=== PATIENT | female | born 1945 | race African-American/Black ===

== ENCOUNTER 2019-01-23 13:25 | Emergency (ER) | payer MEDICARE, OTHER ==
[~2019-01-23] VITALS: Ht 160 cm; Wt 59.0 kg
[2019-01-23 13:42] VITALS: BP 145/70
[2019-01-23] MEDS ORDERED: predniSONE 20 MG TABLET PO ONE (14:00)
[2019-01-23] MEDS ORDERED: METH4TAB2 PO (14:16)
--- NOTE | 2019-01-23 14:16 | PHYS DOC ---
Past Medical History Past Medical History: Arthritis, Hypertension (NORMA LAY APRN) Past Surgical History: No Surgical History (NORMA LAY APRN) Alcohol Use: None Drug Use: None (NORMA LAY APRN) Adult General Chief Complaint Chief Complaint: PAIN CONTROL HPI HPI Patient is a 73 year old female with history of rheumatoid arthritis, hypertension, who presents to the ED today complaining of 10 out of 10 right knee pain for 2 weeks. Patient states she has been taking Aleve with minimal relief. Patient denies any injury. Patient states she follows up with her senior visual designer for pain. She would also like us to evaluate her right index finger which she believes has a spider bite. She never saw the spider bite her but she believes it happened a couple days ago. Patient denies any drainage from the area. Patient describes the pain as sharp and constant. Patient states the pain is worse on flexion and extension of the knee, she is asking for steroid injection in the knee. (NORMA LAY APRN) Review of Systems Review of Systems Constitutional: Denies fever or chills [] Musculoskeletal: Reports right knee pain-chronic Integument: Reports insect bite to the right index finger. Neurologic: Denies headache, focal weakness or sensory changes [] All other systems were reviewed and found to be within normal limits, except as documented in this note. (NORMA LAY APRN) Current Medications Current Medications Current Medications Medications (Trade) Dose Ordered Sig/Chun Start Time Stop Time Status Last Admin Dose Admin Prednisone (Prednisone) 60 mg 1X ONCE 01/23/19 14:00 01/23/19 14:01 DC 01/23/19 14:21 60 MG (ESTEBAN DUNCAN MD) Allergies Allergies Allergies Coded Allergies Type Severity Reaction Last Updated Verified No Known Drug Allergies 01/23/19 No (ESTEBAN DUNCAN MD) Physical Exam Physical Exam Constitutional: Well developed, well nourished, no acute distress, non-toxic appearance. [] Skin: Right index finger with 2 puncture wounds suspicious of insect bite on mid phalanx and distal phalanx. No erythema to these areas. No drainage. No tenderness. Back: No tenderness, no CVA tenderness. [] Extremities: Right knee with no obvious deformity, no edema, no ecchymosis, no warmth, no redness, full passive range of motion to the right knee, +2 right pedal pulse. Cap refill less than 2 seconds the right lower extremity. Neurologic: Alert and oriented X 3, normal motor function, normal sensory function, no focal deficits noted. [] Psychologic: Affect normal, judgement normal, mood normal. [] (NORMA LAY APRN) Current Patient Data Vital Signs Vital Signs Date Time Temp Pulse Resp B/P (MAP) Pulse Ox O2 Delivery O2 Flow Rate FiO2 01/23/19 13:42 97.7 77 16 145/70 (95) 98 Room Air 97.7 (ESTEBAN DUNCAN MD) EKG EKG [] (NORMA LAY APRN) Radiology/Procedures Radiology/Procedures [] (NORMA LAY APRN) Course & Med Decision Making Course & Med Decision Making Pertinent Labs and Imaging studies reviewed. (See chart for details) This is a 73-year-old female patient presenting to the ED today with chronic right knee pain, patient has rheumatoid arthritis. Currently taking Aleve. Given prescription for Medrol Dosepak. Also has insect bite to the right index finger that does not appear infected, recommended Neosporin [id number], patient wants a prescription medicine, Bactroban provided, tetanus up-to-date. Follow-up with PCP as needed. (NORMA LAY APRN) Course & Med Decision Making Staff Physician Addendum: I was working in the ER during the course of this patient's visit. I was available for consultation as needed, but I was not directly involved in the care of this patient. (ESTEBAN DUNCAN MD) Dragon Disclaimer Dragon Disclaimer This electronic medical record was generated, in whole or in part, using a voice recognition dictation system. (NORMA LAY APRN) Departure Departure Impression: Primary Impression: Chronic pain of right knee Additional Impression: Insect bite of index finger Disposition: 01 HOME, SELF-CARE Condition: STABLE Referrals: SELVIN ANDRE MD followup in 1 week Patient Instructions: Insect Bite, [id number], Knee Pain, [id number] Additional Instructions: You were evaluated in the emergency room for chronic right knee pain. Ice and elevate the extremity. Take the prescribed medication as ordered. Follow-up with the senior visual designer all pain clinic doctor or primary care doctor in the course of next week. Applied the cream provided to the right index finger. Scripts Mupirocin (MUPIROCIN OINTMENT) 22 Gm Oint...g. 1 UMER TP TID for WOUND CARE, #1 TUBE Prov: NORMA LAY APRN 01/23/19 Methylprednisolone (MEDROL) 4 Mg Tab.ds.pk 1 PKG PO UD, #1 PKG Prov: NORMA LAY SHEAR ASSEMBLER 01/23/19 Problem Qualifiers Additional Impression: Insect bite of index finger Encounter type: initial encounter Laterality: right Qualified Codes: S60.460A - Insect bite (nonvenomous) of right index finger, initial encounter; W57.XXXA - Bitten or stung by nonvenomous insect and other nonvenomous arthropods, initial encounter NORMA LAY APRN Jan 23, 2019 14:16 ESTEBAN DUNCAN MD Jan 26, 2019 20:14
[2019-01-23] MEDS ORDERED: MUPI22OI2 TP (14:17)
== END 2019-01-23 14:35 | disposition home or self-care (01) ==
LOC: ER 13:25
DX: S60.460A Insect bite (nonvenomous) of right index finger, initial encounter (principal); G89.29 Other chronic pain; M25.561 Pain in right knee; I10 Essential (primary) hypertension; W57.XXXA Bitten or stung by nonvenomous insect and other nonvenomous arthropods, initial encounter; Y93.89 Activity, other specified; Y92.89 Other specified places as the place of occurrence of the external cause; Y99.8 Other external cause status
CPT/HCPCS: 99283; J7512